=== PATIENT | male | born 1995 | race African-American/Black ===

== ENCOUNTER 2020-12-27 00:16 | Inpatient (IN) | payer MEDICAID ==
[~2020-12-27] VITALS: Ht 172.7 cm; Wt 78.0 kg
[2020-12-27] MEDS ORDERED: LORazepam 2 MG/ML VIAL IM ONE (22:15)
[2020-12-27] MEDS ORDERED: HALOPERIDOL LACTATE 5 MG/ML VIAL IM ONE (22:15)
[2020-12-27] MEDS ORDERED: DiphenhydrAMINE HCL 50 MG/ML VIAL IM ONE (22:15)
[2020-12-27] MEDS ORDERED: MELATONIN 3 MG TABLET PO PRN (22:15)
[2020-12-27] MEDS ORDERED: OLANZapine 5 MG TABLET PO PRN (22:30)
[2020-12-27 23:30] VITALS: BP 153/76
[2020-12-28 04:11] VITALS: BP 144/78
[2020-12-28 07:13] LABS: COVID AG,FIA SOURCE NASOPHARYNGEAL
[2020-12-28] MEDS ORDERED: MAG HYDROX/AL HYDROX/SIMETH ES 30 ML SUSPENSION UDCUP PO PRN (07:15)
[2020-12-28] MEDS ORDERED: PROMETHAZINE HCL 25 MG TABLET PO PRN (07:15)
[2020-12-28] MEDS ORDERED: OLANZapine 5 MG RAPDIS TABLET PO PRN ×2 (07:15)
[2020-12-28] MEDS ORDERED: ZOLPIDEM TARTRATE 10 MG TABLET PO PRN (07:15)
[2020-12-28] MEDS ORDERED: GuaiFENesin/D-METHORPHAN [SUGAR-FREE] 200-20MG/10 ML SYRUP UDCUP PO PRN (07:15)
[2020-12-28] MEDS ORDERED: HydrOXYzine PAMOATE 50 MG CAPSULE PO PRN (07:15)
[2020-12-28] MEDS ORDERED: LOPERAMIDE HCL 2 MG CAPSULE PO PRN (07:15)
[2020-12-28] MEDS ORDERED: MAGNESIUM HYDROXIDE SUSPENSION 30 ML UDCUP PO PRN (07:15)
[2020-12-28] MEDS ORDERED: TUBERCULIN, PURIFIED PROTEIN DERIVATIVE 5 TU/0.1 ML SYRINGE ID ONE (07:15)
[2020-12-28 07:21] LABS: APPEARANCE,URINE CLEAR (CLEAR); BILIRUBIN,URINE NEGATIVE (NEGATIVE); GLUCOSE, URINE (UA) NEGATIVE (NEGATIVE); KETONES,URINE NEGATIVE (NEGATIVE); LEUKOCYTE ESTERASE ,URINE NEGATIVE (NEGATIVE); NITRATE,URINE NEGATIVE (NEGATIVE); OCCULT BLOOD,URINE NEGATIVE (NEGATIVE); PROTEIN,URINE NEGATIVE (NEGATIVE); UROBILINOGEN,URINE 0.2 mg/dL (<=1.0)
[2020-12-28 07:27] LABS: AMPHET/METH SCREEN,URINE NEGATIVE (NEGATIVE); BARBITURATE SCREEN, URINE NEGATIVE (NEGATIVE); BENZODIAZEPINES SCREEN,URINE NEGATIVE (NEGATIVE); CANNABINOID SCREEN,URINE NEGATIVE (NEGATIVE); COCAINE SCREEN,URINE NEGATIVE (NEGATIVE); METHADONE SCREEN, URINE NEGATIVE (NEGATIVE); OPIATE SCREEN,URINE NEGATIVE (NEGATIVE); PHENCYCLIDINE SCREEN,URINE NEGATIVE (NEGATIVE)
[2020-12-28] MEDS ORDERED: OLANZapine 5 MG TABLET PO SCH (09:00)
[2020-12-28 09:57] VITALS: BP 114/58
[2020-12-28] MEDS ORDERED: QUEtiapine FUMARATE 100 MG TABLET PO PRN (14:15)
[2020-12-28] MEDS: NALTREXONE HCL 50 MG TABLET PO SCH (14:49)
[2020-12-28] MEDS: THIAMINE 100 MG TABLET PO SCH ×2 (14:49→17:02)
[2020-12-28] MEDS: MULTIVITAMINS WITH MINERALS, THERAPEUTIC TABLET PO SCH (14:49)
[2020-12-28] MEDS: OMEGA-3/DHA/EPA/FISH OIL 1,000 MG CAPSULE PO SCH (14:50)
[2020-12-28] MEDS: FOLIC ACID 1 MG TABLET PO SCH (14:50)
[2020-12-28 16:16] VITALS: BP 138/67
[2020-12-28] MEDS: LORazepam 2 MG TABLET PO PRN (20:12)
[2020-12-28] MEDS ORDERED: OLANZapine 5 MG RAPDIS TABLET PO SCH (21:00)
[2020-12-28] MEDS: MELATONIN 5 MG TABLET PO SCH (21:00)
[2020-12-28] MEDS: QUEtiapine FUMARATE 200 MG TABLET PO SCH (22:03)
[2020-12-29] MEDS: LORazepam 2 MG TABLET PO PRN ×3 (08:26→17:09)
[2020-12-29] MEDS: FOLIC ACID 1 MG TABLET PO SCH (08:26)
[2020-12-29] MEDS: NALTREXONE HCL 50 MG TABLET PO SCH (08:27)
[2020-12-29] MEDS: OMEGA-3/DHA/EPA/FISH OIL 1,000 MG CAPSULE PO SCH (08:27)
[2020-12-29] MEDS: MULTIVITAMINS WITH MINERALS, THERAPEUTIC TABLET PO SCH (08:27)
[2020-12-29] MEDS: THIAMINE 100 MG TABLET PO SCH ×2 (08:28→16:24)
[2020-12-29 09:05] VITALS: BP 130/69
[2020-12-29] MEDS ORDERED: PALIPERIDONE 1.5 MG ER TABLET PO PRN (14:45)
[2020-12-29] MEDS ORDERED: PALIPERIDONE PALMITATE 234 MG/1.5 ML SYRINGE IM ONE (16:00)
[2020-12-29 16:37] VITALS: BP 128/57
[2020-12-29] MEDS: QUEtiapine FUMARATE 200 MG TABLET PO SCH (20:17)
[2020-12-29] MEDS: MELATONIN 5 MG TABLET PO SCH (20:18)
[2020-12-29] MEDS ORDERED: PALIPERIDONE 3 MG ER TABLET PO SCH (21:00)
[2020-12-29] MEDS ORDERED: ALBUTEROL SULFATE HFA 90 MCG/PUFF 8 GM INHALER IH PRN (23:45)
[2020-12-30 04:53] VITALS: BP 122/73
[2020-12-30] MEDS: ACETAMINOPHEN 325 MG TABLET PO PRN (05:37)
[2020-12-30 07:47] LABS: EOSINOPHILS % (AUTO) 5.7 % (1.0-6.0); HEMATOCRIT 46.2 % (41-53); HEMOGLOBIN 15.8 g/dL (13.5-17.5); LYMPHOCYTES # (AUTO) 1.1 K/uL (1.0-4.8); LYMPHOCYTES % (AUTO) 35.3 % (22.0-44.0); MEAN CORPUSCULAR HEMOGLOBIN 30.1 pg (26.0-34.0); MEAN CORPUSCULAR HGB CONC 34.3 G/dL (31.0-37.0); MEAN CORPUSCULAR VOLUME 88 fL (80-100); MONOCYTES # (AUTO) 0.2 K/uL (0.1-1.0); MONOCYTES % (AUTO) 7.2 % (2.0-9.0); NEUTROPHILS # (AUTO) 1.6 K/uL (1.8-7.7); NEUTROPHILS % (AUTO) 50.8 % (40.0-70.0); PLATELET COUNT (AUTO) 169 K/uL (150-450); RED BLOOD CELL COUNT(AUTO) 5.27 MIL/uL (4.50-5.90); RED CELL DISTRIBUTION WIDTH 13.1 % (11.5-14.5)
[2020-12-30 07:59] LABS: HEMOGLOBIN A1C 5.3 % (3.8-5.6)
[2020-12-30 08:25] LABS: ALANINE AMINOTRANSFERASE 32 U/L (12-78); ALBUMIN 4.2 g/dL (3.4-5.0); ALKALINE PHOSPHATASE 29 U/L (46-116); ANION GAP 8 mmol/L (8-16); ASPARTATE AMINOTRANSFERASE 23 U/L (15-37); BILIRUBIN,TOTAL 0.6 mg/dL (0.1-1.0); CALCIUM, TOTAL 9.2 mg/dL (8.8-10.5); CARBON DIOXIDE 30 mmol/L (22-29); CHLORIDE 105 mmol/L (98-107); CHOL/HDL RATIO 2.8 (4.2-7.3); CHOLESTEROL 122 mg/dL (131-200); CREATININE 0.77 mg/dL (0.60-1.30); FREE T4 (FREE THYROXINE) 0.99 ng/dL (0.76-1.46); GLOMERULAR FILTR. RATE CALC > 60 mL/min (>60); GLUCOSE,RANDOM 91 mg/dL (70-110); HDL CHOLESTEROL 44 mg/dL (40-60); LDL CHOL (CALC.) 69 mg/dL (0-130); POTASSIUM 4.4 mmol/L (3.5-5.1); SODIUM SERUM 143 mmol/L (136-145); THYROID STIMULATING HORMONE 0.62 uIU/mL (0.36-3.74); TOTAL PROTEIN, SERUM 7.5 g/dL (6.4-8.2); TRIGLYCERIDES 46 mg/dL (15-150); UREA NITROGEN, BLOOD 8 mg/dL (7-18)
[2020-12-30 08:42] VITALS: BP 139/73
[2020-12-30] MEDS: NALTREXONE HCL 50 MG TABLET PO SCH (09:18)
[2020-12-30] MEDS: OMEGA-3/DHA/EPA/FISH OIL 1,000 MG CAPSULE PO SCH (09:18)
[2020-12-30] MEDS: FOLIC ACID 1 MG TABLET PO SCH (09:18)
[2020-12-30] MEDS: MULTIVITAMINS WITH MINERALS, THERAPEUTIC TABLET PO SCH (09:18)
[2020-12-30] MEDS: THIAMINE 100 MG TABLET PO SCH ×2 (09:18→17:13)
[2020-12-30 16:18] VITALS: BP 116/60
[2020-12-30] MEDS: LORazepam 2 MG TABLET PO PRN (17:13)
[2020-12-30] MEDS: MELATONIN 5 MG TABLET PO SCH (20:56)
[2020-12-30] MEDS ORDERED: QUEtiapine FUMARATE 200 MG TABLET PO SCH (21:00)
[2020-12-31 00:15] VITALS: BP 125/67
[2020-12-31 08:16] VITALS: BP 154/83
[2020-12-31] MEDS: MULTIVITAMINS WITH MINERALS, THERAPEUTIC TABLET PO SCH (09:00)
[2020-12-31] MEDS: THIAMINE 100 MG TABLET PO SCH ×2 (09:00→16:23)
[2020-12-31] MEDS: OMEGA-3/DHA/EPA/FISH OIL 1,000 MG CAPSULE PO SCH (09:00)
[2020-12-31] MEDS: FOLIC ACID 1 MG TABLET PO SCH (09:00)
[2020-12-31] MEDS: NALTREXONE HCL 50 MG TABLET PO SCH (09:00)
[2020-12-31] MEDS: LORazepam 2 MG TABLET PO PRN ×2 (11:14→18:10)
[2020-12-31 16:09] VITALS: BP 158/86
[2020-12-31] MEDS: NICOTINE 21 MG/24 HOUR PATCH TD SCH (16:23)
[2020-12-31 19:05] VITALS: BP 134/60
[2020-12-31] MEDS: QUEtiapine FUMARATE 200 MG TABLET PO SCH (20:57)
[2020-12-31] MEDS: MELATONIN 5 MG TABLET PO SCH (20:57)
[2020-12-31] MEDS ORDERED: QUEtiapine FUMARATE 300 MG TABLET PO SCH (21:00)
[2021-01-01 02:08] VITALS: BP 132/89
[2021-01-01 08:11] VITALS: BP 136/78
[2021-01-01] MEDS: NICOTINE 21 MG/24 HOUR PATCH TD SCH (08:52)
[2021-01-01] MEDS: NALTREXONE HCL 50 MG TABLET PO SCH (08:52)
[2021-01-01] MEDS: LORazepam 2 MG TABLET PO PRN (08:52)
[2021-01-01] MEDS: THIAMINE 100 MG TABLET PO SCH ×2 (08:52→16:57)
[2021-01-01] MEDS: MULTIVITAMINS WITH MINERALS, THERAPEUTIC TABLET PO SCH (08:52)
[2021-01-01] MEDS: FOLIC ACID 1 MG TABLET PO SCH (08:52)
[2021-01-01] MEDS: OMEGA-3/DHA/EPA/FISH OIL 1,000 MG CAPSULE PO SCH (08:52)
[2021-01-01 16:38] VITALS: BP 160/82
[2021-01-01] MEDS: ACETAMINOPHEN 325 MG TABLET PO PRN (19:25)
[2021-01-01 19:41] VITALS: BP 137/70
[2021-01-01] MEDS: QUEtiapine FUMARATE 200 MG TABLET PO SCH (20:28)
[2021-01-01] MEDS: MELATONIN 5 MG TABLET PO SCH (20:33)
[2021-01-02 04:37] VITALS: BP 128/68
[2021-01-02] MEDS: NICOTINE 21 MG/24 HOUR PATCH TD SCH (08:38)
[2021-01-02] MEDS: THIAMINE 100 MG TABLET PO SCH ×2 (08:38→16:34)
[2021-01-02] MEDS: FOLIC ACID 1 MG TABLET PO SCH (08:38)
[2021-01-02] MEDS: NALTREXONE HCL 50 MG TABLET PO SCH (08:38)
[2021-01-02] MEDS: MULTIVITAMINS WITH MINERALS, THERAPEUTIC TABLET PO SCH (08:38)
[2021-01-02] MEDS: OMEGA-3/DHA/EPA/FISH OIL 1,000 MG CAPSULE PO SCH (08:38)
[2021-01-02] MEDS ORDERED: PALIPERIDONE PALMITATE 156 MG/ML SYRINGE IM ONE (09:00)
[2021-01-02 09:09] VITALS: BP 110/53
[2021-01-02] MEDS: LORazepam 2 MG TABLET PO PRN (13:22)
[2021-01-02 17:27] VITALS: BP 134/71
[2021-01-02] MEDS ORDERED: IBUPROFEN 600 MG TABLET PO PRN (19:15)
[2021-01-02] MEDS ORDERED: BENZOCAINE 10% 7 GM GEL TP PRN (19:15)
[2021-01-02] MEDS: MELATONIN 5 MG TABLET PO SCH (20:43)
[2021-01-02] MEDS: QUEtiapine FUMARATE 200 MG TABLET PO SCH (20:44)
[2021-01-02] MEDS ORDERED: GABAPENTIN 300 MG CAPSULE PO SCH (21:00)
[2021-01-03 01:56] VITALS: BP 128/75
[2021-01-03 08:08] VITALS: BP 147/80
[2021-01-03] MEDS: MULTIVITAMINS WITH MINERALS, THERAPEUTIC TABLET PO SCH (08:34)
[2021-01-03] MEDS: FOLIC ACID 1 MG TABLET PO SCH (08:34)
[2021-01-03] MEDS: NALTREXONE HCL 50 MG TABLET PO SCH (08:35)
[2021-01-03] MEDS: NICOTINE 21 MG/24 HOUR PATCH TD SCH (08:35)
[2021-01-03] MEDS: OMEGA-3/DHA/EPA/FISH OIL 1,000 MG CAPSULE PO SCH (08:35)
[2021-01-03] MEDS: THIAMINE 100 MG TABLET PO SCH (08:35)
[2021-01-03] MEDS: LORazepam 2 MG TABLET PO PRN ×2 (08:39→13:19)
[2021-01-03] MEDS ORDERED: GABAPENTIN 300 MG CAPSULE PO SCH (09:00)
[2021-01-03] MEDS ORDERED: NALT50TA PO (14:20)
[2021-01-03] MEDS ORDERED: QUET200T29 PO (14:20)
[2021-01-03] MEDS ORDERED: OMEG-135 PO (14:20)
[2021-01-03] MEDS ORDERED: MELA3TAB89 PO (14:20)
[2021-01-03] MEDS ORDERED: GABA-1181 PO ×2 (14:20)
== END 2021-01-03 15:14 | disposition home or self-care (01) | DRG 750 ==
LOC: EDSTATUS 00:16 → PREINTOOBSV 00:19 → PREOBSVTOIN 00:21 → B3A 12-28 08:40
PROVIDERS: ADMIT Psychiatry & Neurology Psychiatry; ATTEND Psychiatry & Neurology Psychiatry
DX: F25.0 Schizoaffective disorder, bipolar type (principal); J45.909 Unspecified asthma, uncomplicated; F25.1 Schizoaffective disorder, depressive type; Z20.822 Contact with and (suspected) exposure to COVID-19; R41.843 Psychomotor deficit; Z55.9 Problems related to education and literacy, unspecified; Z59.9 Problem related to housing and economic circumstances, unspecified; Z65.3 Problems related to other legal circumstances; Z79.899 Other long term (current) drug therapy
CPT/HCPCS: 80053; 80061; 81003; 83036; 84439; 84443; 85025; 86592; 87426; A9575; J1200; J1630; J2060